=== PATIENT | female | born 1955 | race Caucasian/White ===

== ENCOUNTER 2020-11-27 13:58 | Outpatient (CLI) | payer MEDICARE, SELFPAY ==
--- NOTE | 2020-11-27 | DI.RAD_ITS ---
Exam(s) XR ABDOMEN FLAT PLATE EXAM: 2D digital imaging was performed. CLINICAL HISTORY: RIGHT LOWER QUADRANT PAIN R10.31. COMPARISON: No exams were available for comparison TECHNIQUE: Supine views of the abdomen performed. FINDINGS: BOWEL GAS PATTERN: Nondistended. Normal quantity of stool. CALCIFICATIONS: No radiopaque calcifications. OSSEOUS STRUCTURES: Unremarkable for age. OTHER FINDINGS: Lung bases clear. Heart size normal. Variant elongated right lobe of liver, Burton' s lobe. IMPRESSION: 1. Nonobstructive bowel gas pattern. 2. No radiopaque calculi. DATA REPOSITORY: RADIATION DOSE DELIVERED:
== END 2020-11-27 14:18 ==
PROVIDERS: Visit Provider Naturopath
DX: R10.31 Right lower quadrant pain (principal)
CPT/HCPCS: 74018

== ENCOUNTER 2020-11-27 14:50 | Outpatient (CLI) | payer MEDICARE, SELFPAY ==
[2020-11-27 12:46] LABS: HCT 41.3 % (36.0-46.0); HGB 13.8 g/dL (11.2-15.7); MCH 29.3 pg (27.0-33.0); MCHC 33.4 % (32.0-36.0); MCV 87.7 fL (80-95); MPV 9.2 fL (8.0-11.0); Platelet Count 301 10^3/uL (130-400); RBC 4.71 10^6/uL (3.93-5.22); RDW 11.4 % (11.7-14.6); RDW-SD 36.6 fL; WBC 7.29 10^3/uL (4.4-10.8)
[2020-11-27 12:47] LABS: Bilirubin Negative (Negative); Blood Trace-intact (Negative); Clarity Clear (Clear); Glucose Negative (Negative); Ketones Negative (Negative); Leukocyte Esterase Negative (Negative); Nitrite Negative (Negative); Specific Gravity >= 1.030 (1.005-1.025); Urobilinogen 0.2 EU/dL (Up TO 0.2)
[2020-11-27 12:56] LABS: Bacteria Negative HPF (Negative); C & S Indicated? No; Casts Negative LPF (Negative); Crystals Negative HPF (Negative); Epithelial Cells Few HPF (Negative); Mucus Trace (Negative); RBC 0-2 HPF (0-2); WBC Negative HPF (0-5)
== END 2020-11-27 14:51 | disposition home or self-care (01) ==
LOC: LBO 14:52
PROVIDERS: Visit Provider Naturopath
DX: R30.9 Painful micturition, unspecified (principal); R10.31 Right lower quadrant pain
CPT/HCPCS: 36415; 85027; 74018; 81003; 81015

== ENCOUNTER 2020-11-28 03:38 | Outpatient (CLI) | payer MEDICARE, SELFPAY ==
[2020-11-28 09:32] LABS: Albumin 3.3 g/dL (3.4-5.0); BUN 24 mg/dL (7-18); CREATININE 0.9 mg/dL (0.55-1.02); Calcium 9.1 mg/dL (8.5-10.1); Chloride 104 mmol/L (98-107); Glucose 115 mg/dL (74-106); PHOSPHORUS 3.7 mg/dL (2.6-4.7); Potassium 4.3 mmol/L (3.5-5.1); Sodium 140 mmol/L (136-145)
== END 2020-11-28 03:39 | disposition home or self-care (01) ==
PROVIDERS: Visit Provider Naturopath
DX: R30.9 Painful micturition, unspecified (principal)
CPT/HCPCS: 80069

== ENCOUNTER 2021-08-15 14:15 | Outpatient (CLI) | payer MEDICARE, SELFPAY ==
[2021-08-15 13:46] LABS: Abs Immature Grans 0.02 10^3/uL (0.0-0.06); Absolute Basophil Count 0.02 10^3/uL (0.0-0.2); Absolute Eosinophil Count 0.11 10^3/uL (0.0-0.7); Absolute Lymphocyte Count 1.29 10^3/uL (1.2-3.4); Absolute Monocyte Count 0.71 10^3/uL (0.1-0.8); Absolute Neutrophil Count 4.58 10^3/uL (1.2-6.7); Basophils % 0.3; Eosinophils % 1.6; HCT 39.7 % (36.0-46.0); HGB 12.8 g/dL (11.2-15.7); Immature Grans % 0.3; Lymphocytes % 19.2; MCH 28.1 pg (27.0-33.0); MCHC 32.2 % (32.0-36.0); MCV 87.3 fL (80-95); MPV 8.6 fL (8.0-11.0); Monocytes % 10.5; Neutrophils % 68.1; Platelet Count 370 10^3/uL (130-400); RBC 4.55 10^6/uL (3.93-5.22); RDW 11.3 % (11.7-14.6); RDW-SD 36.6 fL; WBC 6.73 10^3/uL (4.4-10.8)
[2021-08-15 13:59] LABS: ALT 39 U/L (14-59); AST 21 U/L (15-37); Alkaline Phosphatase 133 U/L (46-116); Anion Gap 4.5 mmol/L (3-11); BUN 10 mg/dL (7-18); Bilirubin, Total 0.5 mg/dL (0.2-1.0); CO2 30.5 mmol/L (21.0-32.0); CREATININE 0.8 mg/dL (0.55-1.02); Calcium 9.2 mg/dL (8.5-10.1); Chloride 97 mmol/L (98-107); Glucose 101 mg/dL (74-106); Potassium 3.9 mmol/L (3.5-5.1); Sodium 132 mmol/L (136-145); Total Protein 8.2 g/dL (6.4-8.2)
== END 2021-08-15 14:16 | disposition home or self-care (01) ==
LOC: LBO 14:19
PROVIDERS: Visit Provider Naturopath
DX: R10.813 Right lower quadrant abdominal tenderness (principal)
CPT/HCPCS: 36415; 80053; 81003; 85025

== ENCOUNTER 2021-08-16 16:40 | Outpatient (REF) | payer MEDICARE, SELFPAY ==
[2021-08-16 15:59] LABS: Bilirubin Negative (Negative); Blood Negative (Negative); Clarity Clear (Clear); Glucose Negative (Negative); Ketones Negative (Negative); Leukocyte Esterase Negative (Negative); Nitrite Negative (Negative); Urobilinogen 0.2 EU/dL (Up TO 0.2)
== END 2021-08-16 16:41 | disposition home or self-care (01) ==
LOC: LBN 16:40
PROVIDERS: Visit Provider Naturopath
DX: R10.813 Right lower quadrant abdominal tenderness (principal)
CPT/HCPCS: 81003

== ENCOUNTER → 2021-09-13 02:11 | Outpatient (CLI) | payer MEDICARE, SELFPAY ==
--- NOTE | 2021-09-13 10:00 | DI.CT_ITS ---
Exam(s) CT ABDOMEN PELVIS WO EXAM: CT ABDOMEN PELVIS WO CLINICAL HISTORY: RT-SIDED ABD PAIN, R10.9. TECHNIQUE: Imaging Protocol: Axial computed tomography images with coronal and sagittal reformatted images were created and reviewed. COMPARISON: No exams were available for comparison FINDINGS: Lack of IV contrast does limit evaluation of the abdominal pelvic organs. ABDOMEN: Lung Bases: Normal where visualized. Liver: Normal density. No measurable mass. Gallbladder and biliary tract: No radiodense calculus or biliary ductal dilation. Pancreas: Normal density, no abnormal calcifications or inflammatory process. Spleen: Normal. Kidneys: Normal size, contour and axis.There is a right renal calcification. No hydronephrosis or ur eterolithiasis. No masses seen. Adrenal glands: No mass is seen. Lymph nodes: Within normal limits. Abdominal Aorta: Abdominal portion non-dilated. Atherosclerosis is present. PELVIS: Bladder:Symmetric distention, no gross wall thickening. Bowel: No obstruction or bowel wall thickening. Appendix is unremarkable. There is diverticulosis se en in the sigmoid colon, but no evidence of acute diverticulitis. Peritoneal cavity: No ascites, collection or mesenteric inflammatory response. No free air. Reproductive organs: Within normal limits. Bones: Age-appropriate degenerative changes are seen in the spine. There is a question of a small ly tic lesion involving the right iliac bone. There is thinning of the cortex. (Series 3, image 506). Soft Tissues: Within normal limits. IMPRESSION: 1. Right nephrolithiasis. No evidence of hydronephrosis or ureterolithiasis. 2. Question of a lytic lesion involving the right iliac bone. Further evaluation with a bone scan an d/or MRI of the pelvis is recommended. RADIATION DOSE DELIVERED: 1,151mGy.cm Total DLP DATA REPOSITORY: All CT scans at this facility are submitted to the National Radiology Data Registry (NRDR) Dose Index Registry (DIR) with the [employer] ([employer]). RADIATION OPTIMIZATION: All CT scans at this facility use at least one of these dose optimization te chniques: automated exposure control; mA and/or kV adjustment per patient size (includes targeted exa ms where dose is matched to clinical indication); or iterative reconstruction.
[2021-09-13] MEDS: Barium Sulfate 2% W/V-Berry Smoothie 450 ML BTL PO (10:28)
== END ==
PROVIDERS: Visit Provider Naturopath
DX: R10.31 Right lower quadrant pain (principal); N20.0 Calculus of kidney; R93.7 Abnormal findings on diagnostic imaging of other parts of musculoskeletal system
CPT/HCPCS: 74176